=== PATIENT | male | born 1950 | race Caucasian/White ===

== ENCOUNTER 2020-02-07 05:17 | Inpatient (IN) ==
--- NOTE | 2020-01-11 16:39 | PAT Medication Instructions ---
Medication Instructions Date of Service January 11, 2020 Home Medications meloxicam 15 mg PO QAM multivitamin 1 tab PO QAM tramadol 50 mg PO BID ASK your prescriber and surgeon meloxicam 15 mg PO QAM DO NOT take the morning of surgery multivitamin 1 tab PO QAM Take morning of surgery With a small sip of water, OTHERWISE NOTHING TO EAT OR DRINK AFTER MIDNIGHT: tramadol 50 mg PO BID (okay to take up to 4 hours prior to surgery if needed) Take evening before surgery tramadol 50 mg PO BID (if needed) Other Notes If you have any questions please call us at [phone] or [phone] or [phone] or [phone]
--- NOTE | 2020-01-12 11:02 | Anesthesiology Consultation ---
Date of Service January 12, 2020 Assessment & Plan (1) Encounter for pre-operative examination: Chart Review Chart Review: Acceptable Risk for Surgery (pending 01/31/20 PCP clearance ) and Patient seen in Pre Admission Testing Awaiting surgeon ordered PCP clearance scheduled 01/31/20 Per PAT appt on 01/12/20, pt resides in [facility]- no recent travel except to [place]. No Covid related symptoms. No history of Covid testing. No known Covid positive contacts. Pt was discouraged to travel and to socially distance until surgery Teaching & Discussion Pre-Anesthesia Teaching/Discussion Notes: Instructed NPO after midnight before surgery,except medications with 15 cc of water. Medication instructions provided according to the PAT guidelines. History Surgery Operation Date: 02/06/20 07:00 Proposed Procedures p Left Anterior Total Hip Arthroplasty - Raulito Guillen DO Height/Weight Height: 5 ft 10 in Weight: 86.4 kg Allergies Allergy/AdvReac Type Severity Reaction Status Date / Time ceftriaxone [From Rocephin] Allergy Intermediate Hives Verified 01/09/20 09:25 Medications Home Medications Medication Instructions Recorded Confirmed Last Taken meloxicam 15 mg PO QAM 01/09/20 01/09/20 Unknown multivitamin 1 tab PO QAM 01/09/20 01/09/20 Unknown tramadol 50 mg PO BID 01/09/20 01/09/20 Unknown Past Medical History Medical History Hearing deficit Osteoarthritis Exercise / Class Metabolic Activity II 4-5 Yardwork/Stairs/Walk up hill (one flight of stairs- no chest pain or SOB ) Past Family History Family History Father Colon cancer Grandfather Colon cancer Past Surgical History Surgical History History of colonoscopy History of tonsillectomy History of tooth extraction Hx of vasectomy Past Anesthesia History No Hx of Anesthesia Complications and No Family Hx of Anesthesia Complications History of PONV No Hx of PONV and No Hx of Motion Sickness Social History Smoking Status: Never smoker Do You Dip or Chew Tobacco: No Hx Alcohol Use: No Hx Substance Use: No substance use type: does not use Review of Systems Occ snoring- no witness apnea Patient denies chest pain, shortness of breath, dyspnea on exertion, reflux, cough, wheezing, palpitations. No hx of seizures, stroke, HI. No hx of blood clots or blood transfusions Physical Exam Vital Signs VITALS BP 159/97 P 65 TEMP 98.6 SP02 97% RESP 16 Constitutional no acute distress ENMT Mouth: no TMJ clicking Thyromental Distance: > or= 3.5 Finger Breadths (3.5) Mallampati Class: II Missing molars Neck neck extension not limited Respiratory normal respiratory effort; no respiratory distress Auscultation: lungs clear to auscultation bilaterally; no diminished lung sounds and no wheezes Cardiovascular Rate/Rhythm: regular rate and regular rhythm Heart Sounds: no murmur Vessels: no carotid bruit Musculoskeletal Spine: + pain with cervical ROM (minimal ) Neurologic moves all extremities Psychiatric Orientation: alert Testing Laboratory Results 01/12/20 11:11 01/12/20 11:11 PT 11.3 Seconds (9.0-12.0) 01/12/20 11:11 INR 1.1 (0.9-1.1) 01/12/20 11:11 APTT 26.8 Seconds (21.0-31.0) 01/12/20 11:11 Hemoglobin A1c 5.2 % (4.5-5.6) 01/12/20 11:11 Urine Color Yellow 01/12/20 Unknown Urine Appearance Clear (Clear) 01/12/20 Unknown Urine pH 5.0 (4.5-7.5) 01/12/20 Unknown Ur Specific [place] 1.015 (1.000-1.030) 01/12/20 Unknown Urine Protein Negative (Negative) 01/12/20 Unknown Urine Glucose (UA) Negative (Negative) 01/12/20 Unknown Urine Ketones Negative (Negative) 01/12/20 Unknown Urine Nitrite Negative (Negative) 01/12/20 Unknown Ur Leukocyte Esterase Negative (Negative) 01/12/20 Unknown Blood Type B Positive 01/12/20 11:14 Antibody Screen NEGATIVE 01/12/20 11:14 Electrocardiogram Date: 01/12/20 Findings: + NSR @ (62) Chest X-Ray Date: 01/12/20 Findings: + NAD
--- NOTE | 2020-01-12 11:38 | XRay Report ---
XR chest Pre-admission PA/Lat CLINICAL HISTORY: 70 years-old Male presenting with preoperative assessment. TECHNIQUE: PA and lateral views of the chest were obtained. COMPARISON: None. FINDINGS: Cardiomediastinal silhouette normal. Lungs and pleural spaces clear. Degenerative changes of the thor acic spine. Upper abdomen normal. IMPRESSION: 1. No acute cardiopulmonary disease. ACT 112: Negative or not required by law. Electronically signed by: Hector Beth M.D. 01/12/2020 11:36 AM
[2020-01-12 13:34] LABS: Basophils # (auto) 0.02 K/uL (0-0.2); Basophils % (auto) 0.4 %; Eosinophils # (auto) 0.07 K/uL (0-0.5); Eosinophils % (auto) 1.4 %; Hematocrit (blood only) 47.6 % (42-52); Hemoglobin 15.7 g/dL (14.0-18.0); Lymphocytes % (auto) 29.9 %; Mean Corpuscular Hemoglobin 30.4 pg (25-34); Mean Corpuscular Volume 92.1 fL (80-100); Mean Platelet Volume 11.6 fL (7.4-10.4); Monocytes # (auto) 0.19 K/uL (0.11-0.59); Monocytes % (auto) 3.8 %; Neutrophils # (auto) 3.23 K/uL (1.4-6.5); Neutrophils % (auto) 64.5 %; Platelet Count 144 K/uL (130-400); RDW Coefficient of Variation 12.7 % (11.5-14.5); RDW Standard Deviation 43.1 fL (36.4-46.3); Red Blood Count 5.17 M/uL (4.7-6.1); White Blood Count 5.01 K/uL (4.8-10.8)
[2020-01-12 13:36] LABS: Appearance Urine Clear (Clear); Bilirubin Urine Negative (Negative); Blood Urine Negative (Negative); Color Urine Yellow; Glucose Urine UA Negative (Negative); Ketones Urine Negative (Negative); Leukocyte Esterase Urine Negative (Negative); Nitrite Urine Negative (Negative); Protein Urine Negative (Negative); Specific Gravity Urine 1.015 (1.000-1.030); Urobilinogen Urine Negative (Negative)
[2020-01-12 13:46] LABS: INR 1.1 (0.9-1.1); Partial Thromboplastin Time 26.8 Seconds (21.0-31.0); Prothrombin Time 11.3 Seconds (9.0-12.0)
[2020-01-12 13:47] LABS: Albumin Level 3.8 gm/dl (3.4-5.0); BUN Creatinine Ratio 12.2 (10-20); Calcium 8.7 mg/dl (8.5-10.1); Creatinine Clr Calc Pharmacy 71.1 ml/min; Est GFR (Non-African American) 77.7; Potassium 3.9 mmol/L (3.5-5.1)
[2020-01-12 14:17] LABS: Estimated Average Glucose 103 mg/dl; Hemoglobin A1C 5.2 % (4.5-5.6)
--- NOTE | 2020-01-13 06:11 | Electrocardiogram Report ---
Test Reason : Blood Pressure : / mmHG Vent. Rate : 062 BPM Atrial Rate : 062 BPM P-R Int : 148 ms QRS Dur : 096 ms QT Int : 410 ms P-R-T Axes : 061 -10 031 degrees QTc Int : 416 ms Normal sinus rhythm Normal ECG No previous ECGs available Confirmed by Sidney Jiménez ([id number]) on 01/13/2020 6:10:37 AM Referred By: Raulito Guillen Confirmed By:Sidney Jiménez
--- NOTE | 2020-02-05 09:39 | History & Physical Report ---
Date of Service February 07, 2020 Assessment & Plan (1) Degenerative joint disease of left hip: I have indicated the patient for left anterior total hip replacement. The risks, benefits and complications of surgery were explained to the patient which include but not limited to infection, acute blood loss, DVT/PE, injury to nerves, vessels, bone, soft tissue, arthrofibrosis, chronic pain, failure of the prosthesis, hip dislocation, leg length discrepancy, need for additional surgery, cardiac and pulmonary events and . The patient wished to proceed with surgery and informed consent was obtained at this time. We will plan for ASA BID post-operatively for DVT prophylaxis. Upon discharge the patient will be discharged home with home health services. Appropriate clearances by PCP were obtained. History of Present Illness Chief Complaint: Left hip pain/djd Primary Care Provider: Hong Renee PA-C The patient is a 70 year old male who presents with complaints of severe left hip pain and DJD. The patient has failed outpatient conservative treatments to this point which included NSAIDs, IA corticosteroid injection, home exercise /walking program. The patient's pain and limited function have progressed to the point where they severely hinder their activities of daily living and they no longer tolerate exercise programs. They are requesting to proceed with total hip replacement surgery. Allergies Allergy/AdvReac Type Severity Reaction Status Date / Time ceftriaxone [From Rocephin] Allergy Intermediate Hives Verified 02/07/20 05:41 Home Medications Home Medications Medication Instructions Recorded Confirmed Type meloxicam 15 mg PO QAM 01/09/20 02/07/20 History multivitamin 1 tab PO QAM 01/09/20 02/07/20 History tramadol 50 mg PO BID 01/09/20 02/07/20 History Past Med/Surg History Medical History Hearing deficit Osteoarthritis Surgical History History of colonoscopy History of tonsillectomy History of tooth extraction Hx of vasectomy Family History Father Colon cancer Grandfather Colon cancer Social History Preferred Language: Mosotho Communication Ability: Effective Station Installer Required: No Beliefs That Will Affect Care: None Current Living Situation: Spouse Other Information That Helps Us Care for You: No Feels Safe at Home: Yes Safety Concerns: Feels Safe At This Time Smoking Status: Never smoker Do You Dip or Chew Tobacco: No ; Second Hand Exposure: No ; Tobacco Cessation Education Requested by Patient: No Hx Alcohol Use: No Hx Substance Use: No Review of Systems Review of Systems: All systems reviewed & are unremarkable except as noted in HPI & below Constitutional: as per Subjective / HPI Physical Exam Physical Exam: LLE NVSI +EHL/FHL/TA/GS SILT grossly, +2 DP pulse, compartments soft NT, limited painful ROM of the hip, antalgic gait. Constitutional: WD/WN, vitals as above Eyes: PERRL, conjunctivae normal, anicteric sclerae ENMT: external ear and nose normal, oropharynx normal Neck: trachea midline, no thyromegaly Respiratory: normal respiratory effort, lungs clear to auscultation Cardiovascular: RRR, no murmur, no edema Gastrointestinal (Abdomen): normal bowel sounds, soft, nontender, no hepatosplenomegaly Musculoskeletal: no cyanosis or clubbing, extremities motor strength 5/5 Skin: no rashes, warm and dry Neurologic: patellar DTR's 2+ bilat, sensation intact Psychiatric: A+Ox3, euthymic affect Lymphatic: no cervical or axillary lymphadenopathy Results & Data Results & Data ([facility]) Diagnostic Findings Multiple views of the hip demonstrates severe DJD with complete loss of the joint space. +osteophytes, +sclerosis, +subchondral cysts.
[~2020-02-07 05:17] MED LIST: ANCEF - ALLERGY NOTED TO ORDERED MEDICATION SCH
[2020-02-07] MEDS ORDERED: TRANEXAMIC ACID 1,000 MG **IV Pre-op IV SCH (06:00)
[2020-02-07] MEDS ORDERED: ACETAMINOPHEN 500 MG TAB PO SCH (06:00)
[2020-02-07] MEDS ORDERED: CLINDAMYCIN 900 MG in DEXTROSE 5% 50 ML IV SCH (06:00)
[2020-02-07] MEDS ORDERED: TRANEXAMIC ACID 1,000 MG **IV Intra-op IV SCH (06:00)
[2020-02-07] MEDS ORDERED: GABAPENTIN 300 MG CAP PO SCH (06:00)
[2020-02-07] MEDS ORDERED: CeleBREX 200 MG CAP PO SCH (06:00)
[2020-02-07] MEDS ORDERED: LR 500ML BOLUS, THEN 15ML/HR IV SCH (06:00)
[2020-02-07] MEDS ORDERED: FAMOTIDINE 20 MG TAB PO SCH (06:00)
[2020-02-07] MEDS ORDERED: dexAMETHasone 4 MG TAB PO SCH (06:00)
[2020-02-07] MEDS ORDERED: METOCLOPRAMIDE HCL 10 MG TABLET PO SCH (06:00)
[2020-02-07] MEDS ORDERED: ROPIVACAINE 0.5% HCL/PF 150 MG, BUPIVACAINE 0.5% MPF 30 ML, EPINEPHrine 30MG/30ML (OR U... INSTIL SCH (06:00)
[2020-02-07] MEDS ORDERED: BUPIVACAINE 0.5 % 5 MG/1 ML PF 10ML VIAL ONE (06:16)
[2020-02-07] MEDS ORDERED: LIDOCAINE HCL 2% 2 ML VIAL/AMP(20MG/ML) INFIL ONE (06:50)
[2020-02-07] MEDS ORDERED: PROPOFOL IV EMULSION 10 MG/ML 20 ML VIAL IV ONE (06:50)
[2020-02-07] MEDS ORDERED: MIDAZOLAM HCL 1 MG/ML 2ML VIAL ONE (06:51)
[2020-02-07] MEDS ORDERED: BACITRACIN INJ 50,000 UNIT VIAL ONE (06:58)
[2020-02-07] MEDS ORDERED: ORTHO JOINT ANESTHETIC ONE (06:58)
--- NOTE | 2020-02-07 07:08 | History & Physical Bridge Note ---
Date of Service February 07, 2020 History & Physical Bridge Note I have examined the patient, reviewed the History & Physical and in the interval since the performance of the History & Physical I have noted the following changes of clinical significance: no changes noted
[2020-02-07] MEDS ORDERED: ATROPINE SULFATE 0.1 MG/ML 10ML SYR IV PRN (07:44)
[2020-02-07] MEDS ORDERED: ePHEDrine sulfate 50 MG/ML AMP IV PRN (07:44)
--- NOTE | 2020-02-07 09:14 | Post Operative Brief Note ---
Immediate Post Op Note v1 Date of Surgery February 07, 2020 Pre & Post Diagnosis Operation Date: 02/07/20 07:15 Pre-Op Diagnosis: Left hip osteoarthritis Post-Op Diagnosis: Left hip osteoarthritis I identified the patient and participated in the time-out.: Yes Procedure Operation Date: 02/07/20 07:15 Actual Procedures p Left Anterior Total Hip Arthroplasty(Left) - Raulito Guillen DO Surgeon Raulito Guillen DO Information Technology Specialist Lev Hdz Estimated Blood Loss 185 Findings Consistent with Post-Op Diagnosis Fluids 1300 cc LR Specimens femoral head Anesthesia Type Spinal MAC Complications none Disposition Disposition: Recovery Room Overlapping Procedure I was present for: the critical portions of procedure. I was immediately available: during the entire case. Back up surgeon: was not required during procedure.
--- NOTE | 2020-02-07 09:16 | Operative Report ---
Post Operative Report Pre & Post Diagnosis Operation Date: 02/07/20 07:15 Pre-Op Diagnosis: Left hip osteoarthritis Post-Op Diagnosis: Left hip osteoarthritis I identified the patient and participated in the time-out.: Yes Procedure Operation Date: 02/07/20 07:15 Actual Procedures p Left Anterior Total Hip Arthroplasty(Left) - Raulito Guillen DO Surgeon Raulito Guillen DO Studio Technician Lev Hdz Estimated Blood Loss 185 Findings Consistent with Post-Op Diagnosis Specimens femoral head Anesthesia Type Spinal MAC Complications none Disposition Disposition: Recovery Room Indications The patient is a 70-year-old male who presents with severe progressive left hip DJD who has failed outpatient conservative treatments. I indicated the patient for a anterior total hip replacement and the risks and benefits were explained in detail which include but not limited to infection, bleeding, blood clot, damage to surrounding bone, nerves, vessels, soft tissue, hip dislocation, failure of the prosthesis, leg length discrepancy, need for additional surgery and . The patient agreed to proceed with replacement of the hip and informed consent was obtained. Appropriate clearances were obtained. Description of Procedure COMPONENTS USED: [employer] hip system: Acetabulum size 58, femur size 10 high offset, femoral head 36+1, liner 5836, acetabular screw 25 mm x 1. DESCRIPTION OF PROCEDURE: Following satisfactory spinal anesthesia, the patient was placed supine on the OR table. The right leg was placed in the well leg lawrence and the left leg in the traction device. The left leg was prepared with ChloraPrep and draped sterilely. A surgical timeout was performed, patient identified and site peter verified. Appropriate antibiotics were given. A standard anterior approach in the interval between the sartorius and tensor muscles was performed. Dissection was carried down through subcutaneous tissues. Electrocautery was utilized for hemostasis. Circumflex femoral vessels were identified, tied and ligated. The anterior capsular fat pad was removed and the capsulotomy was performed revealing the arthritic femoral neck and head. A femoral neck cut was made with reciprocating saw and the bone fragments removed. The acetabular self-retraining retractor was placed. Acetabular reaming was completed under fluoroscopic guidance, a 58 shell was impacted into an anatomic position and secured with a dome screw. Local anesthetic was placed and following irrigation, the polyethylene liner was placed. The femur was placed into position of external rotation, extension and adduction. Femoral canal was prepared up to the size 10 high offset. Trial reduction with a 36+4 neck length head showed good soft tissue tension, leg lengths restored, and good fit and fill of the proximal canal using fluoroscopic landmarks. The hip was dislocated. The trial component was removed. The final implant was placed. The hip was irrigated with sterile saline solution and reduced. A Betadine soak was performed. After 3 minutes, the hip was once more irrigated with copious sterile saline solution with bacitracin. Queta-incisional soft tis tai was injected utilizing [place] [employer] which includes a combination of Ropivicaine 0.5% 150mg, Bupivicaine 0.5%/Epinephrine 1:200,000 30ml, Toradol 30mg, Dexamethasone 4mg, Ketamine 10mg, Clonidine 100mcg and NSS 30ml solution. The capsule was then closed with 1-0 Vicryl interrupted figure of eight sutures. The fascia was closed with a running suture of #1 Vicryl, the subcutaneous tissues with 2-0 Vicryl and the skin was closed with henna. A dry sterile dressing was applied at this time which included Shani incisional VAC. The patient tolerated the procedure well and was transported to PACU in stable condition. Due to the complex nature of the procedure, the entire surgery was performed with the operational assistance of Lev Hdz PA-C. The virtual assistant for advertisers, under direct supervision, was involved in the actual performance of all aspects of the surgical procedure including patient positioning, hemostasis, tissue retraction, instrument management and wound closure. I attest to the content of the Intraoperative Record and any orders documented therein. Any exceptions are noted below.
[2020-02-07] MEDS ORDERED: ePHEDrine sulfate 50 MG/ML SYR ONE (09:30)
[2020-02-07] MEDS ORDERED: PHENYLEPHRINE 100MCG/ML 5ML SYR ONE (09:30)
--- NOTE | 2020-02-07 09:30 | Fluoroscopy Report ---
FL hip LT 1V CLINICAL HISTORY: LEFT ANTERIOR HIP COMPARISON STUDY: None. FLUOROSCOPY TIME: 58 seconds. FLUOROSCOPIC IMAGES: 2 FINDINGS: Fluoroscopy was provided during total left hip arthroplasty. Hardware is intact. There is n o fracture or unexpected radiopaque foreign body. Acetabular screw is noted. IMPRESSION: Fluoroscopy provided during total left hip arthroplasty. ACT 112: Negative or not required by law. Electronically signed by: Willian Little M.D. 02/07/2020 9:28 AM
--- NOTE | 2020-02-07 09:55 | XRay Report ---
XR hip 1V LT w pelvis HISTORY: 70 years-old Male IN PACU - A/P PELVIS and LATERAL HIP postoperative exam. COMPARISON: Fluoroscopic images of the left hip of same day TECHNIQUE: AP view of the pelvis with crosstable lateral view of the left hip FINDINGS: Left hip total joint arthroplasty demonstrates satisfactory alignment. No acute fracture or retained foreign body identified. Lateral skin henna are noted along with expected postsurgical soft tissue swelling and deep tissue air with surgical drainage catheter. Pelvic basin calcifications are suggest levy of phleboliths. There is a least mild right hip osteoarthritis. IMPRESSION: Left hip total joint arthroplasty with expected postoperative findings. ACT 112: Negative or not required by law. The above report was generated using voice recognition software. It may contain grammatical, syntax o r spelling errors. Electronically signed by: Pancho Gottlieb M.D. 02/07/2020 9:53 AM
--- NOTE | 2020-02-07 10:14 | Anesthesiology Progress Note ---
Date of Service February 07, 2020 Anesthesia Post Procedure Vital Signs Vital Signs: Temp Pulse Pulse Resp BP Pulse Ox 02/07/20 10:05 36.6 C 81 16 115/64 97 02/07/20 09:55 88 16 122/63 98 02/07/20 09:45 80 16 115/69 100 02/07/20 09:37 36.6 C 84 16 118/68 98 02/07/20 05:46 37.1 C 71 18 157/83 H 98 Transfer of Care Handoff Completed per policy Notes Mental Status: alert / awake / arousable and participated in evaluation Nausea / Vomiting: adequately controlled Pain: adequately controlled Airway Patency, RR, SpO2: stable & adequate BP & HR: stable & adequate Hydration State: stable & adequate Neuraxial Anesthesia: was administered and sensory block is resolving Anesthetic Complications: no major complications apparent and Pt Satisfied with anesthetic care
[2020-02-07] MEDS ORDERED: NALOXONE HCL 0.4 MG/1 ML VIAL/CARP IV PRN (10:49)
[2020-02-07] MEDS ORDERED: MAGNESIUM HYDROXIDE SUSP 30 ML UDC PO PRN (10:49)
[2020-02-07] MEDS ORDERED: METOCLOPRAMIDE HCL INJ 5 MG/ML 2 ML VIAL IV PRN (10:49)
[2020-02-07] MEDS ORDERED: SODIUM CHLORIDE 0.9% 1000ML 1,000 ML IV SCH (10:49)
[2020-02-07] MEDS ORDERED: ONDANSETRON INJ 2 MG/ML 2 ML VIAL IV PRN (10:49)
[2020-02-07] MEDS ORDERED: HYDROmorphone INJ 0.5 MG/0.5 ML SYR IV PRN (10:49)
[2020-02-07] MEDS ORDERED: bisacodyL 10 MG SUPP PR PRN (10:49)
[2020-02-07] MEDS: KETOROLAC TROMETHAMINE 15 MG/ML VIAL IV SCH ×2 (12:23→18:35)
[2020-02-07] MEDS: ACETAMINOPHEN 500 MG TAB PO SCH ×2 (14:08→21:21)
[2020-02-07] MEDS: CLINDAMYCIN 900 MG in DEXTROSE 5% 50 ML IV SCH ×2 (14:08→22:18)
--- NOTE | 2020-02-07 14:45 | Orthopedic Progress Note ---
Date of Service February 07, 2020 Assessment & Plan (1) Degenerative joint disease of left hip: s/p Left anterior RODGER -clinda x 24 -DVT ppx: SCDs, TEDs, 325mg ASA BID -WBAT LLE -PT/OT -PO XR demonstrates well aligned well fixed total hip prothesis without fracture/dislocation -am labs -DC planning Admission and Anticipated Discharge Date Admission Date: February 07, 2020 Subjective Post Operative Progress Note Patient seen sitting up in bed, comfortable, denies complaints, pain well controlled, no acute issues. Review of Systems Review of Systems: All systems reviewed & are unremarkable except as noted in HPI & below Constitutional: as per Subjective / HPI Physical Exam Physical Exam: LLE NVSI +EHL/FHL/TA/GS SILT grossly, +2 DP pulse, compartments soft NT, dressing cdi. Constitutional: WD/WN, vitals as above Results & Data ([facility]) Vital Signs (Past 12 Hours) Vital Signs Temp Pulse Pulse Resp BP Pulse Ox 02/07/20 13:20 89 16 123/67 100 02/07/20 12:20 82 14 129/69 98 02/07/20 11:20 72 14 124/62 96 02/07/20 10:50 75 14 114/57 L 02/07/20 10:20 37.0 C 72 16 123/62 95 02/07/20 10:05 36.6 C 81 16 115/64 97 02/07/20 09:55 88 16 122/63 98 02/07/20 09:45 80 16 115/69 100 02/07/20 09:37 36.6 C 84 16 118/68 98 02/07/20 05:46 37.1 C 71 18 157/83 H 98
[2020-02-07] MEDS: OXYCODONE HCL IR 5 MG TAB (IMMEDIATE RELEASE) PO PRN ×2 (14:50→19:37)
[2020-02-07] MEDS ORDERED: SENNA 8.6 MG TAB PO SCH (21:00)
[2020-02-07] MEDS: DOCUSATE SODIUM 100 MG CAP PO SCH (21:22)
[2020-02-08] MEDS: KETOROLAC TROMETHAMINE 15 MG/ML VIAL IV SCH ×2 (00:10→05:49)
[2020-02-08] MEDS: ACETAMINOPHEN 500 MG TAB PO SCH ×2 (05:49→13:14)
[2020-02-08 06:19] LABS: Basophils # (auto) 0.01 K/uL (0-0.2); Basophils % (auto) 0.1 %; Eosinophils # (auto) 0.04 K/uL (0-0.5); Eosinophils % (auto) 0.4 %; Hematocrit (blood only) 39.5 % (42-52); Hemoglobin 13.2 g/dL (14.0-18.0); Immature Granulocytes # (auto) 0.02 K/uL (0.00-0.02); Immature Granulocytes % (auto) 0.2 %; Lymphocytes # (auto) 1.61 K/uL (1.2-3.4); Lymphocytes % (auto) 14.7 %; Mean Corpuscular Hemoglobin 30.4 pg (25-34); Mean Corpuscular Hgb Conc 33.4 g/dL (32-36); Mean Platelet Volume 11.5 fL (7.4-10.4); Monocytes # (auto) 0.65 K/uL (0.11-0.59); Monocytes % (auto) 5.9 %; Neutrophils # (auto) 8.63 K/uL (1.4-6.5); Neutrophils % (auto) 78.7 %; Platelet Count 138 K/uL (130-400); RDW Coefficient of Variation 12.6 % (11.5-14.5); RDW Standard Deviation 42.5 fL (36.4-46.3); Red Blood Count 4.34 M/uL (4.7-6.1); White Blood Count 10.96 K/uL (4.8-10.8)
[2020-02-08 06:52] LABS: BUN Creatinine Ratio 15.8 (10-20); Calcium 8.6 mg/dl (8.5-10.1); Creatinine Clr Calc Pharmacy 66.9 ml/min; Est GFR (African American) 83.7; Est GFR (Non-African American) 72.2; Potassium 4.2 mmol/L (3.5-5.1)
[2020-02-08] MEDS: DOCUSATE SODIUM 100 MG CAP PO SCH (07:26)
--- NOTE | 2020-02-08 08:24 | Anesthesiology Progress Note ---
Date of Service February 08, 2020 Anesthesia Post Procedure Vital Signs Vital Signs: Temp Pulse Pulse Resp BP BP Pulse Ox 02/08/20 07:39 36.7 C 74 16 136/68 98 02/08/20 03:15 37.1 C 71 16 98/50 L 100 02/07/20 23:05 37.1 C 73 16 141/76 H 96 02/07/20 20:31 37.1 C 76 16 123/68 96 02/07/20 15:00 36.6 C 98 H 17 132/71 99 02/07/20 13:20 89 16 123/67 100 02/07/20 12:20 82 14 129/69 98 02/07/20 11:20 72 14 124/62 96 02/07/20 10:50 75 14 114/57 L 02/07/20 10:20 37.0 C 72 16 123/62 95 02/07/20 10:05 36.6 C 81 16 115/64 97 02/07/20 09:55 88 16 122/63 98 02/07/20 09:45 80 16 115/69 100 02/07/20 09:37 36.6 C 84 16 118/68 98 Pain Intensity Left Hip: Pain Intensity: 4 Notes Mental Status: alert / awake / arousable and participated in evaluation Nausea / Vomiting: adequately controlled Pain: adequately controlled Airway Patency, RR, SpO2: stable & adequate BP & HR: stable & adequate Hydration State: stable & adequate Anesthetic Complications: no major complications apparent and Pt Satisfied with anesthetic care
[2020-02-08] MEDS ORDERED: MULTIVITAMIN TAB PO SCH (09:00)
[2020-02-08] MEDS ORDERED: ASPIRIN 325 MG ECTAB PO SCH (09:00)
[2020-02-08] MEDS ORDERED: CeleBREX 200 MG CAP PO SCH (12:00)
--- NOTE | 2020-02-08 13:51 | Orthopedic Progress Note ---
Date of Service February 08, 2020 Assessment & Plan (1) Degenerative joint disease of left hip: s/p Left anterior RODGER POD#1 -clinda x 24 -DVT ppx: SCDs, TEDs, 325mg ASA BID -WBAT LLE -PT/OT -PO XR demonstrates well aligned well fixed total hip prothesis without fracture/dislocation -am labs - hgb 13.2 -DC planning - home with HH Admission and Anticipated Discharge Date Admission Date: February 07, 2020 Subjective Post Operative Progress Note Patient seen sitting up in bed, comfortable, denies complaints, pain well controlled, no acute issues. Denies F/C/N/V/SOB/CP. Review of Systems Review of Systems: All systems reviewed & are unremarkable except as noted in HPI & below Constitutional: as per Subjective / HPI Physical Exam Physical Exam: LLE NVSI +EHL/FHL/TA/GS SILT grossly, +2 DP pulse, compartments soft NT, dressing cdi. Constitutional: WD/WN, vitals as above Results & Data ([facility]) Vital Signs (Past 12 Hours) Vital Signs Temp Pulse Resp BP BP Pulse Ox 02/08/20 07:39 36.7 C 74 16 136/68 98 02/08/20 03:15 37.1 C 71 16 98/50 L 100 Laboratory Results 02/08/20 02/08/20 Range/Units 05:50 05:50 WBC 10.96 H (4.8-10.8) K/uL RBC 4.34 L (4.7-6.1) M/uL Hgb 13.2 L (14.0-18.0) g/dL Hct 39.5 L (42-52) % MCV 91.0 (80-100) fL MCH 30.4 (25-34) pg MCHC 33.4 (32-36) g/dL RDW Std Deviation 42.5 (36.4-46.3) fL RDW Coeff of Giacomo 12.6 (11.5-14.5) % Plt Count 138 (130-400) K/uL MPV 11.5 H (7.4-10.4) fL Immature Gran % (Auto) 0.2 % Neut % (Auto) 78.7 % Lymph % (Auto) 14.7 % [place] % (Auto) 5.9 % Eos % (Auto) 0.4 % Baso % (Auto) 0.1 % Immature Gran # (Auto) 0.02 (0.00-0.02) K/uL Neut # (Auto) 8.63 H (1.4-6.5) K/uL Lymph # (Auto) 1.61 (1.2-3.4) K/uL [place] # (Auto) 0.65 H (0.11-0.59) K/uL Eos # (Auto) 0.04 (0-0.5) K/uL Baso # (Auto) 0.01 (0-0.2) K/uL Sodium 140 (136-145) mmol/L Potassium 4.2 (3.5-5.1) mmol/L Chloride 106 (98-107) mmol/L Carbon Dioxide 28 (21-32) mmol/L Anion Gap 6.0 (3-11) BUN 16 (7-18) mg/dl Creatinine 1.03 (0.6-1.4) mg/dl Est Cr Clr Drug Dosing 66.9 ml/min Est GFR ( Amer) 83.7 Est GFR (Non-Af Amer) 72.2 BUN/Creatinine Ratio 15.8 (10-20) Glucose 111 H (70-99) mg/dl Calcium 8.6 (8.5-10.1) mg/dl
--- NOTE | 2020-02-09 20:28 | Discharge Summary ---
Date of Service February 08, 2020 Admission HPI Per Admitting Provider The patient is a 70 year old male who presents with complaints of severe left hip pain and DJD. The patient has failed outpatient conservative treatments to this point which included NSAIDs, IA corticosteroid injection, home exercise/walking program. The patient's pain and limited function have progressed to the point where they severely hinder their activities of daily living and they no longer tolerate exercise programs. They are requesting to proceed with total hip replacement surgery. Principal Diagnosis Left anterior total hip replacement -Left hip DJD Discharge Exam LLE NVSI +EHL/FHL/TA/GS SILT grossly, +2 DP pulse, compartments soft NT, dressing cdi. Constitutional WD/WN, vitals as above Discharge Data Allergies Allergy/AdvReac Type Severity Reaction Status Date / Time ceftriaxone [From Rocephin] Allergy Intermediate Hives Verified 02/07/20 05:41 Consultations 02/08/20 08:00 Consult Case Management - Discharge Planning Routine Procedures Performed Operation Date: 02/07/20 07:15 Actual Procedures p Left Anterior Total Hip Arthroplasty(Left) - Raulito Guillen DO Ordered Studies 02/07/20 07:15 FL fluoroscopy <1hr Routine FL hip LT 1V Routine Hospital Course (1) Degenerative joint disease of left hip: The patient is a 70 -year-old male who presents with long standing history of severe left hip DJD and failed outpatient conservative treatments. The patient's symptoms have progressed to the point where it has been difficult to perform even normal activities of daily living. I indicated the patient for a left anterior total hip arthroplasty, the risks, benefits and complications of the procedure include but not limited to infection, bleeding, damage to bone, nerves, vessels, surrounding soft tissue, may develop blood clots, loss of function, leg length discrepancy, dislocation, failure of the components, loosening of the components, the need for additional surgery and . The patient wished to proceed with surgery at this time and informed consent was obtained. Hospital Course: On 02/07/20 the patient was taken to the operating room, adequate anesthesia a dministered and underwent a left anterior total hip arthroplasty. The patient tolerated the procedure well and was taken to the PACU in stable condition. Post-operatively the patient was started on a DVT ppx medication and given appropriate IV antibiotics. Consults were placed to physical therapy, occupational therapy and case management. On POD#1, the patient did well overnight and their pain was well controlled. Labs were drawn and the Hgb was 13.2. The patient progressed well with PT. Dressings were changed at this time and the incision was clean, dry and intact. The patients hospital stay was relatively uneventful and they were deemed stable by the orthopedic team and consultants to be discharged home with HH on 02/08/20. Discharge Instructions: Upon discharge the patient may weight bear as tolerates through their operative extremity. They were instructed to keep the incision clean and dry at all times. The patient may shower but should not submerge the incision, avoid bathing, pools and hot tubes. The patient was given a script for pain medication and should take as instructed. The patient was given a script for DVT ppx ASA BID and should take as directed. The patient was instructed to not drive or travel for long distances until cleared to do so. If the patient develops any symptoms of fevers, chills, nausea, vomiting, increased redness, swelling, pain or drainage from the surgical site, they should notify the office and/or proceed to the nearest emergency room. The patient should follow up in 10-14 days after surgery for their routine post-operative follow-up appointment and should call the office to confirm the date and time. s/p Left anterior RODGER POD#1 -clinda x 24 -DVT ppx: SCDs, TEDs, 325mg ASA BID -WBAT LLE -PT/OT -PO XR demonstrates well aligned well fixed total hip prothesis without fracture/dislocation -am labs - hgb 13.2 -DC planning - home with Total Time Total Time Spent Total Time Spent (In Minutes): 30 Discharge Plan Discharge Items Patient Disposition: Home - Home Health Services Reason For Visit: LEFT HIP OSTEOARTHRITIS Discharge Diagnosis: Left total hip replacement Condition on Discharge: Good Activity: Per Instructions section Lifting: Wait until after follow-up appointment Bathing: Keep incision dry Bathing Comment: No bathing, pools or hot tubs. Sexual Activity: Wait until after follow-up appointment Exercise/Sports: Wait until after follow-up appointment Driving/Machine Use: No driving Weightbearing: Full weightbearing Non-emergency contact: Primary Care Provider and Surgeon Call non-emergency contact if: you have any medication questions, your symptoms worsen, your pain is not controlled, your pain is worsening, your pain is unusual for you, your pain is concerning for you, you have a fever, your temperature is above 101, your wound has increased redness, your wound has increased drainage and your wound pain has increased Follow-up/Referrals: Letty Chery DO [Primary Care Provider] - Diet: Regular Addtl Attending Provider Instructions: ACTIVITY RECOMMENDATIONS: SELF CARE INSTRUCTIONS AFTER TOTAL HIP REPLACEMENT : Direct Anterior Approach Until the incision and soft tissues around your hip have healed, there is a possibility that the hip prosthesis could dislocate. A. Hip flexion ( Up & Down out of chair or steps ) may be difficult. This is normal. B. Numbness in front of the thigh is also normal for a few weeks. C. Use hand rails when walking on stairs. D. Wear low heeled shoes with non-slip soles. E. Be sure that your floors are free of things that could trip you - throw rugs, electrical cords, small objects. Avoid wet and waxed floors, especially with crutches and canes. F. Try to walk several times a day with rest periods between. G. Continue with all the exercises taught to you in the hospital. Again, make walking a part of your daily routine. SPECIAL CARE INSTRUCTIONS: VERY IMPORTANT TO READ AND REVIEW A. You may still be at risk for phlebitis and blood clots. 1. Wear surgical stockings (ALFREDO hose) for 2 weeks after surgery to improve circulation and reduce swelling. 2. Take Aspirin 325mg twice daily for 4 weeks or as directed by your doctor. This is your blood thinner. 3. High risk patients may be prescribed a stronger blood thinner if necessary. 4. If you are on Coumadin normally, your family doctor/front desk administrator should monitor your blood work. Expect a phone call the day of or the day after bloodwork is drawn to adjust your dosage. B. You must take antibiotics before having dental work, bladder, bowel and other surgery. Your doctor will provide you with a permanent card to carry describing precautions. C. Call [facility] if you have a fever, redness or swelling around the incision, cloudy drainage from incision, or sudden increase in pain in your hip, not relieved by your regular pain medication. D. Please call the office at if you have any concerns or questions about your operation or recovery. * YOU MAY SHOWER, NO TUB BATHS UNTIL CLEARED BY YOUR DOCTOR. - Keep an extra close eye on the top portion of your incision. Be sure to keep clean & dry. * WEAR ALFREDO HOSE 20 HOURS PER DAY FOR 2 WEEKS. * YOU MAY PROGRESS FROM A WALKER, TO A CANE, TO INDEPENDENT AT YOUR OWN PACE. * MOST PATIENTS WILL HAVE HOME NURSING FOR THERAPY. IF YOU DECIDE TO DO OUTPATIENT PHYSICAL THERAPY, PLEASE SCHEDULE THIS 3 TIMES PER WEEK. *PREVENA incisional vac is a special dressing covering your incision. This dressing provides a sterile dry environment while you are healing. The dressing is to be left in place for 7 days post-operatively. Your home nurse or surgeon will remove. If you develop any redness or blisters or have any questions notify your surgeon immediately. FOLLOW UP VISIT: If appointment is not already scheduled: Please call [facility] to make a follow-up appointment for 2 weeks after your surgery at . Pending Studies at Discharge: No Stand-Alone Forms: [facility] [employer], Smoking Cessation Medications and DC Order Prescriptions: New celecoxib [Celebrex] 200 mg Capsule 200 mg PO BID PRN (Reason: pain/inflammation) Qty: 28 RF: 0 acetaminophen 500 mg Tablet 1,000 mg PO Q8 PRN (Reason: pain) Qty: 90 RF: 0 aspirin 325 mg Tablet,Delayed Release (Dr/Ec) 325 mg PO BID Qty: 56 RF: 0 oxycodone 5 mg Tablet 5 mg PO Q6H MDD 4 PRN (Reason: pain) Qty: 30 RF: 0 sennosides [Senokot] 8.6 mg Tablet 17.2 mg PO HS PRN (Reason: constipation) Qty: 28 RF: 0 Continued multivitamin Tablet 1 tab PO QAM RF: 0 Discontinued meloxicam 15 mg Tablet 15 mg PO QAM RF: 0 tramadol 50 mg Tablet 50 mg PO BID RF: 0 Discharge Orders: Discharge Order (Routine); Ordered 02/08/20 Ordered By: Raulito Guillen Admission Data Admit Date/Time: 02/07/20 09:43 Attending Provider: Raulito Guillen Admit Provider: Raulito Guillen Primary Care Provider: Letty Chery Other Interventions: Discharge Summary Assessment (RN) Last Done: 02/08/20 14:07 DC Date/Time DO NOT enter until pt leaves facility: 02/08/20 15:00
== END 2020-02-08 15:00 | disposition home health service (06) | DRG 470 ==
LOC: ASU 05:17 → 3E 09:43